=== PATIENT | male | born 1990 | race Caucasian/White ===

== ENCOUNTER → 2020-10-06 | Outpatient (CLI) | payer BC | END | disposition home or self-care (01) | LOC: LABWHC1 16:53 | PROVIDERS: ATTEND Emergency Medicine | DX: Z20.822 Contact with and (suspected) exposure to COVID-19 (principal) | CPT/HCPCS: U0003; C9803; U0005 ==

== ENCOUNTER 2022-03-14 19:57 | Emergency (ER) | payer BC ==
[2022-03-14 20:21] VITALS: RESP 18; TEMP 98.2
[2022-03-14] MEDS ORDERED: SODIUM CHLORIDE 0.9% 1,000 ML IV STA (20:54)
[2022-03-14 21:32] LABS: African American GFR (CKD) >90 (>60 ml/min/1.73 sqM); Albumin 4.6 g/dL (3.5-5.0); Alkaline Phosphatase 181 U/L (38-126); Amylase 52 U/L (30-110); Anion Gap 10 mmol/L; Blood Urea Nitrogen 10 mg/dL (9-20); Calcium 9.4 mg/dL (8.4-10.2); Carbon Dioxide 30 mmol/L (22-30); Chloride 99 mmol/L (98-107); Glucose 108 mg/dL (74-99); Lipase 46 U/L (23-300); Non-African American GFR(CKD) >90 (>60 ml/min/1.73 sqM); Potassium 4.1 mmol/L (3.5-5.1); Sodium 139 mmol/L (137-145); Total Bilirubin 5.8 mg/dL (0.2-1.3); Total Protein 8.3 g/dL (6.3-8.2)
--- NOTE | 2022-03-14 21:42 | XR ---
EXAMINATION TYPE: XR KUB DATE OF EXAM: 03/14/2022 COMPARISON: NONE HISTORY: Pain TECHNIQUE: 2 views upright FINDINGS: Bowel gas pattern is normal. No sign of intestinal obstruction or pneumoperitoneum. Fecal p attern is normal. Lung bases are clear. No calcification seen over the kidneys. IMPRESSION: Nonacute abdomen.
[2022-03-14 21:43] LABS: AST 972 U/L (17-59)
[2022-03-14 22:00] LABS: Basophils # (A) 0.1 k/uL (0-0.2); Basophils % (A) 1 %; Eosinophils # (A) 0.1 k/uL (0-0.7); Eosinophils % (A) 2 %; HCT 49.1 % (39.0-53.0); HGB 16.2 gm/dL (13.0-17.5); Lymphocytes % (A) 16 %; MCH 30.2 pg (25.0-35.0); MCHC 32.9 g/dL (31.0-37.0); MCV 91.8 fL (80.0-100.0); Mean Platelet Volume 8.8; Monocytes # (A) 0.5 k/uL (0-1.0); Monocytes % (A) 8 %; Neutrophils # (A) 4.6 k/uL (1.3-7.7); Neutrophils % (A) 70 %; Platelet Count 239 k/uL (150-450); RBC 5.35 m/uL (4.30-5.90); RDW 13.9 % (11.5-15.5); WBC 6.5 k/uL (3.8-10.6)
[2022-03-14 22:21] LABS: ALT 2623 U/L (4-49)
[2022-03-14 22:38] LABS: Appearance,Urine Clear (Clear); Bilirubin,Urine 2+ (Negative); Blood,Urine Negative (Negative); Color,Urine Dark Yellow; Glucose,Urine (UA) Negative (Negative); Ketones,Urine Trace (Negative); Leukocyte Esterase,Urine Negative (Negative); Nitrite,Urine Negative (Negative); Protein,Urine Trace (Negative); Specific Gravity,Urine 1.022 (1.001-1.035)
--- NOTE | 2022-03-14 23:40 | US ---
EXAMINATION TYPE: US abdomen limited DATE OF EXAM: 03/14/2022 COMPARISON: NONE CLINICAL HISTORY: Upper abdominal pain, elevated LFTs and bilirubin. Slight jaundice, RUQ pain, N/V, elevated LFTs & bili EXAM MEASUREMENTS: Liver Length: 14.3 cm Gallbladder Wall: 0.23 cm CBD: 0.32 cm Right Kidney: 9.9 x 4.7 x 5.0 cm Pancreas: Tail obscured by overlying bowel gas Liver: Appears wnl Gallbladder: Gallbladder somewhat contracted, limiting visualization. Possible sludge/stones. Evidence for sonographic Lei's sign: No CBD: appears wnl Right Kidney: No hydronephrosis or masses seen IMPRESSION: No pancreatic mass. No dilated ducts. Contracted gallbladder and a few gallstones. No ascites.
--- NOTE | 2022-03-14 23:54 | ED ---
Abdominal Pain HPI - General Source: patient Mode of arrival: ambulatory Limitations: no limitations <Nathanael Carmona - Last Filed: 03/15/22 00:23> - History of Present Illness MD Complaint: abdominal pain, other (Nausea vomiting dark stools) -: days(s) Radiation: none Migration to: no migration Severity: moderate Severity scale (1-10): 4 Quality: cramping Consistency: intermittent Improves With: nothing Worsens With: nothing Context: other Associated Symptoms: nausea, vomiting, diarrhea Treatments Prior to Arrival: other <Og Robles - Last Filed: 03/15/22 01:35> - General Chief Complaint: Abdominal Pain Time Seen by Provider: 03/14/22 20:37 - History of Present Illness Initial Comments: Patient is a 31-year-old male presenting with chief complaint of abdominal pain. Symptoms started over the weekend. Pain is located mainly in the epigastric region. Patient admits to nausea and vomiting. He also admits to dark colored loose stool. States that today he has noticed pain is not as bad and he has had formed bowel movements. He denies any chest pain, shortness of breath, fever, chills, back pain, palpitations, weakness, hematochezia, melena, hematuria, dysuria, urgency, frequency, hematemesis. (Nathanael Carmona) - Related Data Home Medications Medication Instructions Recorded Confirmed No Known Home Medications 03/14/22 03/14/22 Allergies Allergy/AdvReac Type Severity Reaction Status Date / Time No Known Allergies Allergy Verified 03/14/22 23:22 Review of Systems ROS Other: All systems not noted in ROS Statement are negative. <Nathanael Carmona - Last Filed: 03/15/22 00:23> ROS Other: All systems not noted in ROS Statement are negative. <Og Robles - Last Filed: 03/15/22 01:35> ROS Statement: Those systems with pertinent positive or pertinent negative responses have been documented in the HPI. Past Medical History Past Medical History: No Reported History History of Any Multi-Drug Resistant Organisms: None Reported Additional Past Surgical History / Comment(s): throat polyps taken out when he was in elementary school Past Psychological History: No Psychological Hx Reported Smoking Status: Never smoker Past Alcohol Use History: Occasional Past Drug Use History: None Reported <Nathanael Carmona - Last Filed: 03/15/22 00:23> General Exam Limitations: no limitations General appearance: alert, in no apparent distress Head exam: Present: atraumatic, normocephalic, normal inspection Eye exam: Present: EOMI, scleral icterus (Mild). Absent: periorbital swelling Neck exam: Present: normal inspection Respiratory exam: Present: normal lung sounds bilaterally. Absent: respiratory distress, wheezes, rales, rhonchi, stridor Cardiovascular Exam: Present: regular rate, normal rhythm, normal heart sounds. Absent: systolic murmur, diastolic murmur, rubs, gallop, clicks GI/Abdominal exam: Present: soft, normal bowel sounds. Absent: distended, tenderness, guarding, rebound, rigid Neurological exam: Present: alert, oriented X3, CN II-XII intact Psychiatric exam: Present: normal affect, normal mood Skin exam: Present: warm, dry, intact, normal color. Absent: rash <Nathanael Carmona - Last Filed: 03/15/22 00:23> General appearance: alert, in no apparent distress Head exam: Present: atraumatic, normocephalic, normal inspection Eye exam: Present: normal appearance, PERRL, EOMI, scleral icterus. Absent: con junctival injection, periorbital swelling ENT exam: Present: normal exam, mucous membranes moist Neck exam: Present: normal inspection. Absent: tenderness, meningismus, lymphadenopathy Respiratory exam: Present: normal lung sounds bilaterally. Absent: respiratory distress, wheezes, rales, rhonchi, stridor Cardiovascular Exam: Present: regular rate, normal rhythm, normal heart sounds. Absent: systolic murmur, diastolic murmur, rubs, gallop, clicks GI/Abdominal exam: Present: soft, normal bowel sounds. Absent: distended, tenderness, guarding, rebound, rigid Extremities exam: Present: normal inspection, full ROM, normal capillary refill. Absent: tenderness, pedal edema, joint swelling, calf tenderness Back exam: Present: normal inspection Neurological exam: Present: alert, oriented X3, CN II-XII intact Psychiatric exam: Present: normal affect, normal mood Skin exam: Present: warm, dry, intact, normal color. Absent: rash <Og Robles - Last Filed: 03/15/22 01:35> Course <Og Robles - Last Filed: 03/15/22 01:35> Vital Signs 03/14/22 20:19 Temperature 98.2 F Pulse Rate 76 Respiratory 18 Rate Blood Pressure 124/83 O2 Sat by Pulse 100 Oximetry - Reevaluation(s) Reevaluation #1: 03/15/22 01:34 Attic record is reviewed (Og Robles) Reevaluation #2: 03/15/22 01:34 Patient is in no acute distress (Og Robles) - Consultations Consultation #1: Spoke with Kyra Alpine agree to accept this patient transfer (Iam Robles) Medical Decision Making - Lab Data Result diagrams: 03/14/22 21:13 03/14/22 21:13 <Nathanael Carmona - Last Filed: 03/15/22 00:23> - Lab Data Result diagrams: 03/14/22 21:13 03/14/22 21:13 <Og Robles - Last Filed: 03/15/22 01:35> - Medical Decision Making Patient is a 31-year-old male presenting with abdominal pain, nausea, vomiting, diarrhea. Patient states his symptoms have been ongoing for the last few days. On examination abdomen is soft, nontender, nondistended. Mild scleral icterus. Lab work shows no leukocytosis. Total bilirubin is 5.8, AST 1972, ALT to 63, alk phos 181, urine bilirubin 2+. Ultrasound shows no pancreatic mass, no dilated ducts, contracted gallbladder and a few gallstones. No ascites. Patient is not complaining of any pain at this time. He denies history of liver or gallbladder disease, frequent Tylenol usage, history of IV drug use, history of alcohol abuse. (Nathanael Carmona) 31 male will be transferred for GI evaluation secondary to acute hepatitis elevated LFTs and hyperbilirubinemia. (Og Robles) - Lab Data Lab Results 03/14/22 03/14/22 03/14/22 Range/Units 21:13 21:13 21:13 WBC 6.5 (3.8-10.6) k/uL RBC 5.35 (4.30-5.90) m/uL Hgb 16.2 (13.0-17.5) gm/dL Hct 49.1 (39.0-53.0) % MCV 91.8 (80.0-100.0) fL MCH 30.2 (25.0-35.0) pg MCHC 32.9 (31.0-37.0) g/dL RDW 13.9 (11.5-15.5) % Plt Count 239 (150-450) k/uL MPV 8.8 Neutrophils % 70 % Lymphocytes % 16 % Monocytes % 8 % Eosinophils % 2 % Basophils % 1 % Neutrophils # 4.6 (1.3-7.7) k/uL Lymphocytes # 1.0 (1.0-4.8) k/uL Monocytes # 0.5 (0-1.0) k/uL Eosinophils # 0.1 (0-0.7) k/uL Basophils # 0.1 (0-0.2) k/uL Sodium 139 (137-145) mmol/L Potassium 4.1 (3.5-5.1) mmol/L Chloride 99 (98-107) mmol/L Carbon Dioxide 30 (22-30) mmol/L Anion Gap 10 mmol/L BUN 10 (9-20) mg/dL Creatinine 0.91 (0.66-1.25) mg/dL Est GFR (CKD-EPI)AfAm >90 (>60 ml/min/1.73 sqM) Est GFR (CKD-EPI)NonAf >90 (>60 ml/min/1.73 sqM) Glucose 108 H (74-99) mg/dL Plasma Lactic Acid Petros 1.0 (0.7-2.0) mmol/L Calcium 9.4 (8.4-10.2) mg/dL Total Bilirubin 5.8 H (0.2-1.3) mg/dL AST 972 H (17-59) U/L ALT 2623 H (4-49) U/L Alkaline Phosphatase 181 H (38-126) U/L Total Protein 8.3 H (6.3-8.2) g/dL Albumin 4.6 (3.5-5.0) g/dL Amylase 52 (30-110) U/L Lipase 46 (23-300) U/L Urine Color Urine Appearance (Clear) Urine pH (5.0-8.0) Ur Specific [place] (1.001-1.035) Urine Protein (Negative) Urine Glucose (UA) (Negative) Urine Ketones (Negative) Urine Blood (Negative) Urine Nitrite (Negative) Urine Bilirubin (Negative) Urine Urobilinogen (<2.0) mg/dL Ur Leukocyte Esterase (Negative) 03/14/22 Range/Units 22:15 WBC (3.8-10.6) k/uL RBC (4.30-5.90) m/uL Hgb (13.0-17.5) gm/dL Hct (39.0-53.0) % MCV (80.0-100.0) fL MCH (25.0-35.0) pg MCHC (31.0-37.0) g/dL RDW (11.5-15.5) % Plt Count (150-450) k/uL MPV Neutrophils % % Lymphocytes % % Monocytes % % Eosinophils % % Basophils % % Neutrophils # (1.3-7.7) k/uL Lymphocytes # (1.0-4.8) k/uL Monocytes # (0-1.0) k/uL Eosinophils # (0-0.7) k/uL Basophils # (0-0.2) k/uL Sodium (137-145) mmol/L Potassium (3.5-5.1) mmol/L Chloride (98-107) mmol/L Carbon Dioxide (22-30) mmol/L Anion Gap mmol/L BUN (9-20) mg/dL Creatinine (0.66-1.25) mg/dL Est GFR (CKD-EPI)AfAm (>60 ml/min/1.73 sqM) Est GFR (CKD-EPI)NonAf (>60 ml/min/1.73 sqM) Glucose (74-99) mg/dL Plasma Lactic Acid Petros (0.7-2.0) mmol/L Calcium (8.4-10.2) mg/dL Total Bilirubin (0.2-1.3) mg/dL AST (17-59) U/L ALT (4-49) U/L Alkaline Phosphatase (38-126) U/L Total Protein (6.3-8.2) g/dL Albumin (3.5-5.0) g/dL Amylase (30-110) U/L Lipase (23-300) U/L Urine Color Dark Yellow Urine Appearance Clear (Clear) Urine pH 6.0 (5.0-8.0) Ur Specific [place] 1.022 (1.001-1.035) Urine Protein Trace H (Negative) Urine Glucose (UA) Negative (Negative) Urine Ketones Trace H (Negative) Urine Blood Negative (Negative) Urine Nitrite Negative (Negative) Urine Bilirubin 2+ H (Negative) Urine Urobilinogen 6.0 (<2.0) mg/dL Ur Leukocyte Esterase Negative (Negative) Disposition <Nathanael Carmona - Last Filed: 03/15/22 00:23> Is patient prescribed a controlled substance at d/c from ED?: No - Out of Hospital Transfer - Req. Specs Out of Hospital Transfer - Requested Specifics: Other Emergency Center ([facility]) <Og Robles - Last Filed: 03/15/22 01:35> Clinical Impression: Abdominal pain, Acute hepatitis, Hyperbilirubinemia Disposition: OTHER INSTITUTION NOT DEFINED Condition: Fair Referrals: None,Stated [Primary Care Provider] - 1-2 days
[2022-03-15] MEDS ORDERED: AMPICILLIN-SULBACTAM 3 GM in SODIUM CHLORIDE 0.9% 100 ML IVPB STA (01:25)
[2022-03-15 01:46] LABS: Acetaminophen <10.0 ug/mL; Alcohol <10 mg/dL; Magnesium 1.9 mg/dL (1.6-2.3); Salicylate <1.0 mg/dL
[2022-03-15 02:22] LABS: INR 1.2 (<1.2); Partial Thromboplastin Time 26.5 sec (22.0-30.0); Prothrombin Time 12.5 sec (9.0-12.0)
[2022-03-15 03:10] VITALS: BP 117/69; PULSE 69
[2022-03-15 10:59] LABS: Hepatitis A Antibody IgM Nonreactive (Nonreactive); Hepatitis B Core IgM Nonreactive (Nonreactive); Hepatitis B Surface Antigen Nonreactive (Nonreactive); Hepatitis C IgG Antibody Nonreactive (Nonreactive)
== END 2022-03-15 03:20 | disposition other institution (70) ==
LOC: EC 19:57
DX: B17.9 Acute viral hepatitis, unspecified (principal); E80.6 Other disorders of bilirubin metabolism
CPT/HCPCS: 36415; 74018; 76705; 80053; 80074; 80143; 80179; 80320; 81003; 82150; 83605; 83690; 83735; 85025; 85610; 85730; 96361; 96365; 96366; 99285

== ENCOUNTER → 2022-03-24 | Outpatient (CLI) | payer BC ==
[2022-03-24 18:31] LABS: Basophils # (A) 0.02 X 10*3/uL (0.00-0.10); Basophils % (A) 0.2 %; Eosinophils # (A) 0 X 10*3/uL (0.04-0.35); Eosinophils % (A) 0 %; HGB 15.2 g/dL (13.0-17.0); Lymphocytes # (A) 1.68 X 10*3/uL (0.90-5.00); Lymphocytes % (A) 20.8 %; MCH 28.8 pg (27.0-32.0); MCHC 31.7 g/dL (32.0-37.0); MCV 90.9 fL (80.0-97.0); Mean Platelet Volume 10.9 fL (9.5-12.2); Monocytes # (A) 0.16 X 10*3/uL (0.20-1.00); NRBC Per 100 WBC 0 /100 WBCS (0.0-0.0); Neutrophils # (A) 6.15 X 10*3/uL (1.80-7.70); Platelet Count 421 X 10*3/uL (140-440); RBC 5.28 X 10*6/uL (4.40-5.60); RDW 14.4 % (11.5-14.5); WBC 8.09 X 10*3/uL (4.50-10.00)
[2022-03-24 18:55] LABS: African American GFR (CKD) 114.3 (60.0-200.0); Albumin 4.6 g/dL (3.8-4.9); Albumin/Globulin Ratio 1.31 (1.60-3.17); BUN/Creat Ratio 11.78 Ratio (12.00-20.00); Blood Urea Nitrogen 11.9 mg/dL (9.0-27.0); Calcium 9.9 mg/dL (8.7-10.3); Carbon Dioxide 27.8 mmol/L (20.0-27.5); Globulin 3.5 g/dL (1.6-3.3); Non-African American GFR(CKD) 98.7 (60.0-200.0); Total Bilirubin 1.3 mg/dL (0.30-1.20); Total Protein 8.2 g/dL (6.2-8.2)
== END | disposition home or self-care (01) ==
LOC: LABWHC1 14:08
PROVIDERS: ATTEND Student in an Organized Health Care Education/Training Program
DX: K75.4 Autoimmune hepatitis (principal)
CPT/HCPCS: 36415; 80053; 85025

== ENCOUNTER → 2022-04-10 | Outpatient (CLI) | payer BC ==
[2022-04-10 17:46] LABS: Basophils # (A) 0.06 X 10*3/uL (0.00-0.10); Basophils % (A) 0.5 %; Eosinophils # (A) 0 X 10*3/uL (0.04-0.35); Eosinophils % (A) 0 %; HCT 46.8 % (39.6-50.0); HGB 14.9 g/dL (13.0-17.0); Immature Grans, Automated 0.7 %; MCH 29.3 pg (27.0-32.0); MCHC 31.8 g/dL (32.0-37.0); MCV 91.9 fL (80.0-97.0); Monocytes # (A) 0.16 X 10*3/uL (0.20-1.00); Monocytes % (A) 1.2 %; NRBC Per 100 WBC 0 /100 WBCS (0.0-0.0); Neutrophils % (A) 88.6 %; Platelet Count 297 X 10*3/uL (140-440); RBC 5.09 X 10*6/uL (4.40-5.60); RDW 14.7 % (11.5-14.5); WBC 13.31 X 10*3/uL (4.50-10.00)
[2022-04-10 17:56] LABS: Albumin 4.6 g/dL (3.8-4.9); Albumin/Globulin Ratio 1.71 (1.60-3.17); Anion Gap 10.2 mmol/L (10.00-18.00); BUN/Creat Ratio 10.8 Ratio (12.00-20.00); Blood Urea Nitrogen 9.9 mg/dL (9.0-27.0); Calcium 9.9 mg/dL (8.7-10.3); Carbon Dioxide 29.3 mmol/L (20.0-27.5); Globulin 2.7 g/dL (1.6-3.3); Non-African American GFR(CKD) 110.4 (60.0-200.0); Potassium 5.4 mmol/L (3.5-5.5); Total Bilirubin 0.4 mg/dL (0.30-1.20); Total Protein 7.3 g/dL (6.2-8.2)
== END | disposition home or self-care (01) ==
LOC: LABWHC1 14:04
PROVIDERS: ATTEND Student in an Organized Health Care Education/Training Program
DX: K75.4 Autoimmune hepatitis (principal)
CPT/HCPCS: 36415; 80053; 85025

== ENCOUNTER → 2022-12-09 | Outpatient (CLI) | payer BC ==
[2022-12-09 11:16] LABS: Basophils # (A) 0.07 X 10*3/uL (0.00-0.10); Basophils % (A) 1.2 %; Eosinophils # (A) 0.32 X 10*3/uL (0.04-0.35); Eosinophils % (A) 5.3 %; HCT 42.4 % (39.6-50.0); HGB 13.9 g/dL (13.0-17.0); Immature Grans, Automated 0.5 %; Lymphocytes # (A) 1.57 X 10*3/uL (0.90-5.00); Lymphocytes % (A) 26.1 %; MCH 28.7 pg (27.0-32.0); MCHC 32.8 g/dL (32.0-37.0); MCV 87.4 fL (80.0-97.0); Monocytes # (A) 0.73 X 10*3/uL (0.20-1.00); Monocytes % (A) 12.1 %; NRBC Per 100 WBC 0 /100 WBCS (0.0-0.0); Neutrophils % (A) 54.8 %; Platelet Count 240 X 10*3/uL (140-440); RBC 4.85 X 10*6/uL (4.40-5.60); RDW 12.6 % (11.5-14.5); WBC 6.02 X 10*3/uL (4.50-10.00)
[2022-12-09 11:28] LABS: ALT 15 U/L (10-49); AST 16 U/L (14-35); African American GFR (CKD) 130.5 (60.0-200.0); Albumin 4.5 g/dL (3.8-4.9); Albumin/Globulin Ratio 1.73 (1.60-3.17); Alkaline Phosphatase 55 U/L (41-126); BUN/Creat Ratio 12.89 Ratio (12.00-20.00); Blood Urea Nitrogen 11.6 mg/dL (9.0-27.0); Calcium 9.7 mg/dL (8.7-10.3); Carbon Dioxide 28.4 mmol/L (20.0-27.5); Chloride 105 mmol/L (96-109); Chol/HDL Ratio 4.54 Ratio; Globulin 2.6 g/dL (1.6-3.3); Glucose 91 mg/dL (70-110); LDL Cholesterol,Calculated 140.2 mg/dL (0.0-131.0); Non-African American GFR(CKD) 112.6 (60.0-200.0); Potassium 4.8 mmol/L (3.5-5.5); Sodium 140 mmol/L (135-145); Total Protein 7.1 g/dL (6.2-8.2)
== END | disposition home or self-care (01) ==
LOC: LABWHC1 08:33
PROVIDERS: ATTEND Family Medicine
DX: Z00.01 Encounter for general adult medical examination with abnormal findings (principal); Z13.220 Encounter for screening for lipoid disorders; K75.4 Autoimmune hepatitis
CPT/HCPCS: 36415; 80053; 80061; 85025

== ENCOUNTER 2023-04-11 20:06 | Emergency (ER) | payer BC ==
[2023-04-11 20:30] VITALS: PULSE 76
[2023-04-11] MEDS ORDERED: PROPARACAINE 0.5% OPHTH DROPS 15 ML BTL RIGHT EYE STA (21:27)
[2023-04-11] MEDS ORDERED: FLUORESCEIN STRIPS 1 MG STRIP RIGHT EYE ONE (21:27)
[2023-04-11] MEDS ORDERED: valACYclovir HCL 1,000 MG TABLET PO STA (21:53)
--- NOTE | 2023-04-11 22:21 | ED ---
General Adult HPI - General Chief complaint: Skin/Abscess/Foreign Body Stated complaint: skin issues right eye Time Seen by Provider: 04/11/23 21:14 Source: patient, family, RN notes reviewed Mode of arrival: ambulatory Limitations: no limitations - History of Present Illness Initial comments: 32-year-old male presents to the emergency department with chief complaint of rash. He reports that he first noticed a spot above his right eyebrow on Sunday which is pruritic. He states that he developed 2 more vesicular lesions on his right eyebrow on Sunday. He states that he went to his eye doctor yesterday and reports normal findings at that time. He states that he had the lesions at that time. Today he states that he noticed 2-3 more in his upper right sided hairline. He notes that these are all itchy. He denies burning to these areas, denies pain. He denies any changes to his vision. Denies pain with eye movement. - Related Data Home Medications Medication Instructions Recorded Confirmed Levocetirizine Dihydrochloride 5 mg PO DAILY 04/11/23 04/11/23 [Xyzal] mycophenolate mofetiL [Cellcept] 1,000 mg PO BID 04/11/23 04/11/23 Previous Rx's Medication Instructions Recorded valACYclovir HCL [Valacyclovir] 1,000 mg PO TID #21 tab 04/11/23 Allergies Allergy/AdvReac Type Severity Reaction Status Date / Time No Known Allergies Allergy Verified 04/11/23 21:40 Review of Systems ROS Statement: Those systems with pertinent positive or pertinent negative responses have been documented in the HPI. ROS Other: All systems not noted in ROS Statement are negative. Past Medical History Past Medical History: No Reported History Additional Past Medical History / Comment(s): auto immune hepatitis History of Any Multi-Drug Resistant Organisms: None Reported Additional Past Surgical History / Comment(s): throat polyps taken out when he was in elementary school Past Psychological History: No Psychological Hx Reported Smoking Status: Never smoker Past Alcohol Use History: Occasional Past Drug Use History: None Reported General Exam Limitations: no limitations General appearance: alert, in no apparent distress Head exam: Present: atraumatic, normocephalic, normal inspection Eye exam: Present: normal appearance, PERRL, EOMI, other (Fluorescein staining performed which showed no corneal abrasions or dendritic lesions). Absent: scleral icterus, conjunctival injection, periorbital swelling ENT exam: Present: normal exam, normal oropharynx, mucous membranes moist, TM's normal bilaterally, normal external ear exam Neck exam: Present: full ROM, lymphadenopathy (Right anterior cervical). Absent: tenderness, meningismus Respiratory exam: Present: normal lung sounds bilaterally. Absent: respiratory distress, wheezes, rales, rhonchi, stridor Cardiovascular Exam: Present: regular rate, normal rhythm, normal heart sounds. Absent: systolic murmur, diastolic murmur, rubs, gallop, clicks Extremities exam: Present: normal inspection, full ROM, normal capillary refill. Absent: tenderness, pedal edema, joint swelling, calf tenderness Back exam: Present: normal inspection Neurological exam: Present: alert, oriented X3, CN II-XII intact Psychiatric exam: Present: normal affect, normal mood Skin exam: Present: warm, dry, vesicles (Right-sided eyebrow, right-sided forehead) Course Vital Signs 04/11/23 04/11/23 20:27 22:52 Temperature 98 F 98.1 F Pulse Rate 76 76 Respiratory 16 18 Rate Blood Pressure 131/72 122/78 O2 Sat by Pulse 99 98 Oximetry Medical Decision Making - Medical Decision Making Was pt. sent in by a medical professional or institution (, PA, OPERATING SYSTEMS PROGRAMMER, urgent care, hospital, or senior living...) When possible be specific @ -No Did you speak to anyone other than the patient for history (EMS, parent, family, police, friend...)? What history was obtained from this source @ -No Did you review nursing and triage notes (agree or disagree)? Why? @ -I reviewed and agree with nursing and triage notes Were old charts reviewed (outside hosp., previous admission, EMS record, old EKG, old radiological studies, urgent care reports/EKG's, senior living records)? Report findings @ -No old charts were reviewed Differential Diagnosis (chest pain, altered mental status, abdominal pain women, abdominal pain men, vaginal bleeding, weakness, fever, dyspnea, syncope, headache, dizziness, GI bleed, back pain, seizure, CVA, palpatations, mental health, musculoskeletal)? @ -shingles, atopic dermatitis, contact dermatitis, allergic reaction, this list is not all inclusive EKG interpreted by me (3pts min.). @ -none X-rays interpreted by me (1pt min.). @ -None done CT interpreted by me (1pt min.). @ -None done U/S interpreted by me (1pt. min.). @ -None done What testing was considered but not performed or refused? (CT, X-rays, U/S, labs)? Why? @ -None What meds were considered but not given or refused? Why? @ -None Did you discuss the management of the patient with other professionals (professionals i.e. , PA, OPERATING SYSTEMS PROGRAMMER, lab, RT, psych nurse, social secretary, registered clinical dietitian, teacher, principal gifts officer, binder caser)? Give summary @ -No Was smoking cessation discussed for >3mins.? @ -No Was critical care preformed (if so, how long)? @ -No Were there social determinants of health that impacted care today? How? (Homelessness, low income, unemployed, alcoholism, drug addiction, transportation, low edu. Level, literacy, decrease access to med. care, detention, rehab)? @ -No Was there de-escalation of care discussed even if they declined (Discuss DNR or withdrawal of care, Hospice)? DNR status @ -No What co-morbidities impacted this encounter? (DM, HTN, Smoking, COPD, CAD, Cancer, CVA, ARF, Chemo, Hep., AIDS, mental health diagnosis, sleep apnea, morbid obesity)? @ -None Was patient admitted / discharged? Hospital course, mention meds given and route, prescriptions, significant lab abnormalities, going to OR and other pertinent info. @ -Discharged. Patient presented to the emergency department with rash on his right-sided face. The patient has a history of autoimmune hepatitis and takes mycophenolate. Patient has 3 vesicular lesions on his right-sided eyebrow, 1 above his right eyebrow, 2-3 lesions on the right sided hairline. He reports that these areas are itchy. These are not maculopapular in appearance. There is no lesions on the nose or within the ear canal. Patient reports chickenpox as a kid. The rash will be treated as shingles with by mouth antivirals as the patient is on immunosuppressive medications. Patient given dose of valacyclovir in the ED. Patient will follow closely with his primary care provider. Return precautions discussed. Patient stable at time of discharge. Case discussed with my attending, Dr. Sutherland Undiagnosed new problem with uncertain prognosis? @ -No Drug Therapy requiring intensive monitoring for toxicity (Heparin, Nitro, Insulin, Cardizem)? @ -No Were any procedures done? @ -No Diagnosis/symptom? @ -shingles Acute, or Chronic, or Acute on Chronic? @ -acute Uncomplicated (without systemic symptoms) or Complicated (systemic symptoms)? @ -uncomplicated Side effects of treatment? @ -No Exacerbation, Progression, or Severe Exacerbation? @ -No Poses a threat to life or bodily function? How? (Chest pain, [place], [place], pneumonia, PE, COPD, DKA, ARF, appy, cholecystitis, CVA, Diverticulitis, Homicidal, Suic idal, threat to staff... and all critical care pts) @ -No Disposition Clinical Impression: [place] Disposition: HOME SELF-CARE Condition: Stable Instructions (If sedation given, give patient instructions): [place] (ED) Additional Instructions: Take medication as directed. Return to the emergency department for new or worsening symptoms we discussed. Prescriptions: valACYclovir HCL [Valacyclovir] 1,000 mg PO TID #21 tab Is patient prescribed a controlled substance at d/c from ED?: No Referrals: None,Stated [Primary Care Provider] - 1-2 days
[2023-04-11 22:54] VITALS: BP 122/78; RESP 18; TEMP 98.1
== END 2023-04-11 22:52 | disposition home or self-care (01) ==
LOC: EC 20:06
DX: B02.9 Zoster without complications (principal)
CPT/HCPCS: 99283

== ENCOUNTER 2023-04-30 16:38 | Emergency (ER) | payer BC ==
[2023-04-30 17:33] VITALS: PULSE 72; TEMP 98
[2023-04-30] MEDS ORDERED: LIDOCAINE 1% INJ 10MG/ML (20 ML MDV) SQ ONE (18:36)
[2023-04-30] MEDS ORDERED: DIPH,PERTUS(ACELL)TETVAC-LF 0.5 ML VIAL IM ONE (18:36)
--- NOTE | 2023-04-30 18:36 | ED ---
General Adult HPI - General Source: patient, family, RN notes reviewed Limitations: no limitations <Lynda Lombardi - Last Filed: 04/30/23 18:33> - General Source: patient, family ( in room), RN notes reviewed Mode of arrival: ambulatory Limitations: no limitations <Jessy Bach - Last Filed: 05/01/23 01:19> - General Chief complaint: Wound/Laceration Stated complaint: left finger laceration Time Seen by Provider: 04/30/23 18:35 - History of Present Illness Initial comments: 52-year-old male presents the emergency department with a chief complaint of left second digit laceration. He was cutting onions prior to arrival when he cut himself. (Lynda Lombardi) 32-year-old male presents to the emergency department chief complaint of left second digit laceration. Patient states that he was cutting onions earlier today while cooking dinner when the knife slipped and cut his ring finger. He admits to a 0.5 cm laceration to his finger. He reports full range of motion in his fingers. Denies numbness, tingling. He states that the pain is only in the area of the laceration. He is not up-to-date on his tetanus vaccination. (Jessy Bach) - Related Data Home Medications Medication Instructions Recorded Confirmed Levocetirizine Dihydrochloride 5 mg PO DAILY 04/11/23 04/11/23 [Xyzal] mycophenolate mofetiL [Cellcept] 1,000 mg PO BID 04/11/23 04/11/23 Previous Rx's Medication Instructions Recorded valACYclovir HCL [Valacyclovir] 1,000 mg PO TID #21 tab 04/11/23 Allergies Allergy/AdvReac Type Severity Reaction Status Date / Time No Known Allergies Allergy Verified 04/11/23 21:40 Review of Systems ROS Other: All systems not noted in ROS Statement are negative. <Lynda Lombardi - Last Filed: 04/30/23 18:33> ROS Other: All systems not noted in ROS Statement are negative. <Jessy Bach - Last Filed: 05/01/23 01:19> ROS Statement: Those systems with pertinent positive or pertinent negative responses have been documented in the HPI. Past Medical History Past Medical History: No Reported History Additional Past Medical History / Comment(s): auto immune hepatitis History of Any Multi-Drug Resistant Organisms: None Reported Additional Past Surgical History / Comment(s): throat polyps taken out when he was in elementary school Past Psychological History: No Psychological Hx Reported Smoking Status: Never smoker Past Alcohol Use History: Occasional Past Drug Use History: None Reported <Lynda Lombardi - Last Filed: 04/30/23 18:33> General Exam Limitations: no limitations <Lynda Lombardi - Last Filed: 04/30/23 18:33> Limitations: no limitations General appearance: alert, in no apparent distress Head exam: Present: atraumatic, normocephalic, normal inspection Eye exam: Present: normal appearance, PERRL, EOMI. Absent: scleral icterus, conjunctival injection, periorbital swelling ENT exam: Present: normal exam, mucous membranes moist Neck exam: Present: normal inspection. Absent: tenderness, meningismus, lymphadenopathy Respiratory exam: Present: normal lung sounds bilaterally. Absent: respiratory distress, wheezes, rales, rhonchi, stridor Cardiovascular Exam: Present: regular rate, normal rhythm, normal heart sounds. Absent: systolic murmur, diastolic murmur, rubs, gallop, clicks GI/Abdominal exam: Present: soft, normal bowel sounds. Absent: distended, tenderness, guarding, rebound, rigid Extremities exam: Present: full ROM, normal capillary refill, other (0.5 cm laceration to left fourth finger). Absent: tenderness, pedal edema, joint swelling, calf tenderness Back exam: Present: normal inspection Neurological exam: Present: alert, oriented X3 Psychiatric exam: Present: normal affect, normal mood Skin exam: Present: warm, dry, normal color, other (0.5 cm laceration to left fourth digit) <Jessy Bach - Last Filed: 05/01/23 01:19> - General Exam Comments Initial Comments: Visual Physical Exam Vital signs reviewed General: Well-appearing, nontoxic, no acute distress. Head: Normocephalic, atraumatic Eyes: PERRLA, EOMI ENT: Airway patent Chest: Nonlabored breathing Skin: No visual rash, normal skin tone Neuro: Alert and oriented 3 Musculoskeletal: No gross abnormalities I performed the quick note portion of this exam, verbal signature Lynda Lombardi PA-C ([facility] Course Vital Signs 04/30/23 04/30/23 17:31 21:11 Temperature 98 F Pulse Rate 72 72 Respiratory 16 18 Rate Blood Pressure 135/68 122/77 O2 Sat by Pulse 99 98 Oximetry Procedures - Laceration Laceration #1 Consent Obtained: verbal consent Indication: laceration Site: hand Size (cm): 1 Description: linear Depth: simple, single layer Anesthetic Used: lidocaine 1% Anesthesia Technique: local infiltration, nerve block Pre-repair: wound explored, irrigated extensively Type of Sutures: other Size of Sutures: 5-0 Number of Sutures: 3 Technique: simple, interrupted Patient Tolerated Procedure: well, no complications <Jessy Bach - Last Filed: 05/01/23 01:19> Medical Decision Making <Jessy Bach - Last Filed: 05/01/23 01:19> - Medical Decision Making Was pt. sent in by a medical professional or institution (DANYEL Scott, [employer] SERVICE TECHNICIAN, urgent care, hospital, or shelter...) When possible be specific @ -No Did you speak to anyone other than the patient for history (EMS, parent, family, police, friend...)? What history was obtained from this source @ -No Did you review nursing and triage notes (agree or disagree)? Why? @ -I reviewed and agree with nursing and triage notes Were old charts reviewed (outside hosp., previous admission, EMS record, old EKG, old radiological studies, urgent care reports/EKG's, shelter records)? Report findings @ -No old charts were reviewed Differential Diagnosis (chest pain, altered mental status, abdominal pain women, abdominal pain men, vaginal bleeding, weakness, fever, dyspnea, syncope, headache, dizziness, GI bleed, back pain, seizure, CVA, palpatations, mental health, musculoskeletal)? @ -Differential Musculoskeletal Muscular strain, contusion, ligament sprain, fracture, arthritis, septic arthritis, bursitis, cellulitis, muscle spasm, nerve compression, DVT, arterial occlusion, herpes zoster, electrolyte abnormality, tumor.... This is not meant to be in all inclusive list EKG interpreted by me (3pts min.). @ -none X-rays interpreted by me (1pt min.). @ -None done CT interpreted by me (1pt min.). @ -None done U/S interpreted by me (1pt. min.). @ -None done What testing was considered but not performed or refused? (CT, X-rays, U/S, labs)? Why? @ -None What meds were considered but not given or refused? Why? @ -None Did you discuss the management of the patient with other professionals (professionals i.e. Dr., PA, [employer] SERVICE TECHNICIAN, lab, RT, psych nurse, social sciences department chair, home care companion, teacher, ship's officer, transplant case manager)? Give summary @ -No Was smoking cessation discussed for >3mins.? @ -No Was critical care preformed (if so, how long)? @ -No Were there social determinants of health that impacted care today? How? (Homelessness, low income, unemployed, alcoholism, drug addiction, transportation, low edu. Level, literacy, decrease access to med. care, senior living, rehab)? @ -No Was there de-escalation of care discussed even if they declined (Discuss DNR or withdrawal of care, Hospice)? DNR status @ -No What co-morbidities impacted this encounter? (DM, HTN, Smoking, COPD, CAD, Cancer, CVA, ARF, Chemo, Hep., AIDS, mental health diagnosis, sleep apnea, morbid obesity)? @ -None Was patient admitted / discharged? Hospital course, mention meds given and route, prescriptions, significant lab abnormalities, going to OR and other pertinent info. @ -Discharged. Patient presented to emergency department with chief complaint of left fourth digit laceration that occurred today while he was cutting onions. XR considered but the wound appeared superficial. Laceration was extensively irrigated. Laceration repaired with 3 simple interrupted sutures. Patient not up-to-date on his tetanus vaccination. Declined by the patient. Risks and benefits discussed. Patient advised on wound care and to get sutures removed in 5-7 days. Patient stable at time of discharge. Case discussed with my attending, Dr. Robles Undiagnosed new problem with uncertain prognosis? @ -No Drug Therapy requiring intensive monitoring for toxicity (Heparin, Nitro, Insulin, Cardizem)? @ -No Were any procedures done? @ -Laceration repair Diagnosis/symptom? @ -Laceration Acute, or Chronic, or Acute on Chronic? @ -Acute Uncomplicated (without systemic symptoms) or Complicated (systemic symptoms)? @ -uncomplicated Side effects of treatment? @ -No Exacerbation, Progression, or Severe Exacerbation? @ -No Poses a threat to life or bodily function? How? (Chest pain, [place], MA, pneumonia, PE, COPD, DKA, ARF, appy, cholecystitis, CVA, Diverticulitis, Homicidal, Suicidal, threat to staff... and all critical care pts) @ -No (Jessy Bach) Disposition <Lynda Lombardi - Last Filed: 04/30/23 18:33> Is patient prescribed a controlled substance at d/c from ED?: No Time of Disposition: 20:52 <Jessy Bach - Last Filed: 05/01/23 01:19> Clinical Impression: Laceration Disposition: HOME SELF-CARE Condition: Stable Instructions (If sedation given, give patient instructions): Care For Your Stitches (ED) Additional Instructions: Please have sutures removed in 5-7 days. Please be on the lookout for signs of infection including redness, warmth, swelling, worsening pain. Return to the emergency department for new or worsening symptoms. Referrals: None,Stated [Primary Care Provider] - 1-2 days Forms: [facility]
[2023-04-30 21:12] VITALS: BP 122/77; RESP 18
== END 2023-04-30 21:30 | disposition home or self-care (01) ==
LOC: EC 16:38
DX: S61.215A Laceration without foreign body of left ring finger without damage to nail, initial encounter (principal); W26.0XXA Contact with knife, initial encounter; Y93.G3 Activity, cooking and baking
CPT/HCPCS: 99282; 12001; J2001

== ENCOUNTER → 2023-10-23 | Outpatient (CLI) | payer BC ==
[2023-10-23 18:41] LABS: ALT 15 U/L (10-49); AST 20 U/L (14-35); Albumin 4.8 g/dL (3.8-4.9); Albumin/Globulin Ratio 1.78 Ratio (1.60-3.17); Alkaline Phosphatase 55 U/L (41-126); Bilirubin, Conjugated <0.20 mg/dL (0.20-0.40); Bilirubin,Unconjugated >0 mg/dL (0.20-1.00); Globulin 2.7 g/dL (1.6-3.3); Total Bilirubin 0.2 mg/dL (0.3-1.2); Total Protein 7.5 g/dL (6.2-8.2)
== END | disposition home or self-care (01) ==
LOC: LABWHC1 13:15
PROVIDERS: ATTEND Student in an Organized Health Care Education/Training Program
DX: K75.4 Autoimmune hepatitis (principal)
CPT/HCPCS: 36415; 80076; 82248